=== PATIENT | male | born 1950 | race Caucasian/White ===

== ENCOUNTER 2016-09-28 12:49 | Outpatient (CLI) | payer OTHER ==
--- NOTE | 2016-10-04 13:54 | DIAGNOSTIC IMAGING REPORT ---
REFERRING PHYSICIAN/PROVIDER: LIVAN Cody CONSULTING DIESEL ENGINE ERECTOR: Nando Chong MD PROCEDURE PERFORMED: Two-day sestamibi CLINICAL INDICATIONS: Shortness of breath LEXISCAN PORTION: Please see separate report. TWO-DAY SESTAMIBI INTERPRETATION: 27 mCi of technetium-99m labeled sestamibi was injected at rest with SPECT tomography performed. On a different day the patient underwent Lexiscan stress with 33 mCi of technetium-99m labeled sestamibi injected 20 seconds after the injection of Lexiscan with SPECT tomography performed. Rest and stress images were then compared. The LV was seen to be dilated with an end diastolic volume of 157 mL and an end systolic volume of 90 mL. There is a large area of mildly reduced radiotracer uptake of the entire inferior wall that normalizes on rest consistent with ischemia. Computer assessed ejection fraction was mildly reduced at 43% with global hypokinesis. COMPARISON: None IMPRESSION: 1. Abnormal myocardial perfusion with large area of mild ischemia of the entire inferior wall. No infarction. 2. Left ventricular enlargement with mild systolic dysfunction.
== END 2016-09-28 23:00 ==
LOC: RT SRH 12:49
PROC: 3E073KZ Introduction of Other Diagnostic Substance into Coronary Artery, Percutaneous Approach (ICD-10-PCS; principal; 2016-09-28)
PROC: 4A02XM4 Measurement of Cardiac Total Activity, External Approach (ICD-10-PCS; principal; 2016-09-28)
DX: R06.02 Shortness of breath (principal); R61 Generalized hyperhidrosis; I10 Essential (primary) hypertension